=== PATIENT | female | born 1995 | race Caucasian/White ===

== ENCOUNTER 2018-03-02 09:50 | Inpatient (IN) | payer BC ==
[2018-03-02] MEDS ORDERED: Misoprostol 50 MCG (1/2 of 100 MCG) Tab VAG ONE (10:41)
[2018-03-02] MEDS ORDERED: Sodium Chloride 0.9% 10 ML Syringe FLUSH PRN (10:47)
[2018-03-02] MEDS ORDERED: Carboprost Tromethamine 250 MCG/1 ML Amp IM PRN (10:47)
[2018-03-02] MEDS ORDERED: Methylergonovine 0.2 MG/1 ML Amp IM PRN (10:47)
[2018-03-02] MEDS ORDERED: Acetaminophen 325 MG Tab PO PRN (10:47)
[2018-03-02] MEDS ORDERED: Lidocaine 1% 30 ML SDV INJECT PRN (10:47)
[2018-03-02] MEDS ORDERED: Misoprostol 400 MCG (4 X 100 MCG TAB) RECTAL PRN (10:47)
[2018-03-02] MEDS ORDERED: Tranexamic Acid 1,000 MG in Sodium Chloride 0.9% 100 ML IV PRN (10:47)
[2018-03-02] MEDS ORDERED: Lactated Ringers 500 ML IV ONE (10:47)
[2018-03-02] MEDS ORDERED: Ondansetron 4 MG/2 ML SDV IV PRN (10:47)
[2018-03-02] MEDS ORDERED: Lactated Ringers 1,000 ML IV SCH (11:00)
[2018-03-02] MEDS ORDERED: Misoprostol 50 MCG (1/2 of 100 MCG) Tab VAG PRN (15:00)
[2018-03-02] MEDS ORDERED: Misoprostol 25 MCG (1/4 of 100 MCG) Tab VAG PRN (16:12)
--- NOTE | 2018-03-02 17:16 | HP ---
CHIEF COMPLAINT: Preeclampsia in 3rd trimester. HISTORY OF PRESENT ILLNESS: This patient is a 23-year-old, 1, para 0, female with a Last menstrual period 06/08/2017 EDC- 03/15/2018, EGA- 38 1/7 weeks gestation who presents to Labor and Delivery because of preeclampsia without severe features. The patient's blood pressures were in the 140's to 150's over 90's. and have not improved from her appointment on 2017. Her protein creatine ratio was 0.6 on 02/28/18, today it is 0.75. At that appointment, discussed of induction of labor today 03/02/2018. The patient and her were in agreement with plan and were prepared for admission to the hospital for today. The patient has had occasional [place] contractions in the past week. No spotting or bleeding. No headaches. No shortness of breath. No cough. No leakage of fluid or vaginal bleeding. movement has been good overall. Nonstress test this morning is reactive. HISTORY: Last menstrual period of 06/08/2017, for an estimated delivery date of 03/15/2018. She is blood type B positive, group B strep negative, and rubella immune. The patient was seen in [facility] by Dr. Emely Musa for 1st and 2nd trimester care. Resumed care by Dr. Connelly at 29 weeks gestation. No gestational diabetes. Patient began to have elevated blood pressures on 02/28/2018. Blood pressure on arrival at that visit was 150/100 with a recheck of 151/84. The patient was placed on modified bedrest that day. Blood pressures had not improved on appointment 03/02/2018. The patient was treated for bacterial vaginosis with 7-day course of metronidazole 12/06/2017. Tdap given 01/03/2018. Flu shot given 01/03/2018. The patient has personal history of chickenpox. PAST MEDICAL HISTORY: 1. Chickenpox as a child. 2. Mild carpal tunnel syndrome, bilateral. 3. Preeclampsia. PAST SURGICAL HISTORY: [place]o tooth extraction. FAMILY HISTORY: Mother with hypertension. No family history of twins. Negative for defects, clotting disorders, anesthesia problems, seizures, cystic fibrosis, or bleeding problems. SOCIAL HISTORY: The patient is to , Abdon. They live in [place], [place]. This is their first child together. 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 David is a licensed clinical social worker. Both are nonsmokers. No alcohol or illicit drug use. CURRENT MEDICATIONS: 1. vitamins. 2. Folic acid. EXPOSURE MEDICATIONS: Metronidazole for Bacterial vaginosis. ALLERGIES: No known allergies. REVIEW OF SYSTEMS: No headache, blurry vision, chest pain, shortness of breath. No fever. No chills. No nausea or vomiting. No diarrhea or constipation. The patient has some mild nonpitting swelling bilaterally in the feet. Hands appear slightly swollen. No skin rash. Cl Gao, no contractions. OBJECTIVE: Vital Signs: Height 5 feet 8 inches, weight is 248 pounds, blood pressure 143/76, pulse 80, temperature of 98 degrees Fahrenheit. HEENT: Atraumatic, normocephalic. Tympanic membranes good light reflex, pearly cortez. Bony landmarks visible. Pupils PERRLA. Mouth, uvula elevates midline. Mucous membranes are moist. Good dentition. Airways patent. Neck: Supple. Trachea midline. There are some hypertrophic scars on her neck and on her chest. Heart: Regular rate and rhythm without murmur. Lungs: Clear to auscultation bilaterally. No crackles, rhonchi, or wheeze, Abdomen: Gravid and nontender. Baseline heart rate 130s per minute. Accelerations noted. No contractions on tocometer. Cervix is 1.5 cm dilated, 70%/-2 Vertex presentation. and bag of water was intact. Extremities: 1 + edema. No erythema or tenderness. DTR's 2+/ 4 No clonus. ADMISSION LABORATORY DATA: Hemoglobin of 11.9, platelets of 205. Urinalysis, urine protein of greater than 300, negative glucose, negative ketones. Urine protein creatinine ratio 0.75. Urine color is dark yellow. ASSESSMENT: 1. A 38 and 1/7 weeks intrauterine based on last menstrual period. 2. 1, para 0. 3. Blood type B positive, rubella immune, group B strep negative. 4. Preeclampsia without severe features.. Elevated urine protein with a Protein creatinine of ratio 0.75. PLAN: The patient admitted for induction of labor. The patient encouraged to drink water so that we can place an IV. We will be inducing her labor with 50 mcg of Cytotec placed vaginally. Further 25mcg Cytotec placement and Pitocin augmentation will be considered as her labor progresses. We are anticipating a spontaneous vaginal delivery. The patient is planning to have IV pain/ Intrathecal medications at this time. The patient understands that complications may arise necessitating a section. The patient and her 's questions have been answered. Patient was seen and examined by Dr. Andres Crum We discussed her case and will continue this plan. [facility] /[id number] MTDD
[2018-03-03] MEDS ORDERED: Sodium Chloride 0.9% 10 ML Syringe FLUSH PRN (01:19)
[2018-03-03] MEDS ORDERED: Benzocaine/Menthol 20%-0.5% Spray 56 GM Canister TOP PRN (01:19)
[2018-03-03] MEDS ORDERED: Carboprost Tromethamine 250 MCG/1 ML Amp IM PRN (01:19)
[2018-03-03] MEDS ORDERED: Zolpidem 5 MG Tab PO PRN (01:19)
[2018-03-03] MEDS ORDERED: Simethicone 80 MG Tab.Chew PO PRN (01:19)
[2018-03-03] MEDS ORDERED: Tranexamic Acid 1,000 MG in Sodium Chloride 0.9% 100 ML IV PRN (01:19)
[2018-03-03] MEDS ORDERED: Misoprostol 400 MCG (4 X 100 MCG TAB) RECTAL PRN (01:19)
[2018-03-03] MEDS ORDERED: Acetaminophen 325 MG Tab PO PRN (01:19)
[2018-03-03] MEDS ORDERED: Oxytocin/Normal Saline 30 UNIT/500 ML BAG IV SCH (01:30)
--- NOTE | 2018-03-03 01:32 | PCM.DEL ---
L & D Note - General Info Date of Service: 03/03/18 (38 2/7 week Intrauterine ) Mother's Due Date: 03/15/18 - Delivery Note Labor: Spontaneous Cervical Ripening Method: Other (see below) (Vaginal Misoprostol 50 micrograms X 1 then 25 microgram X 2.) Delivery Outcome: Livebirth Infant Delivery Method: Spontaneous Vaginal Delivery-Single Delivery Mode: Spontaneous Presentation: Vertex Nuchal Cord: None Anesthesia Type: Local Anesthetic: Lidocaine (Xylocaine) 1% Plain Local Anesthetic Volume: Other (20 mL) Amniotic Fluid Description: Clear Episiotomy Type: None Laceration: 2nd Degree, Perineal Suture type: Vicryl, Chromic Suture size: 3-0 Placenta: Intact, Spontaneous, Expressed Cord: 3 Vessels Estimated Blood Loss: 450 Resuscitation Needed: No [place]: Suctioned, Bulb Syringe, Stimulated, Warmed, [place] Used, Warmer Used Provider: Andres Crum Score 1 min: 9 Score 5 min: 9 Second Stage Interventions: Reports: Second Nurse Assessed Progress of Descent, Second Nurse Reviewed Contraction Pattern, Pushing Involuntarily Delivery Comments (Free Text/Narrative):: , OA Viable female infant over intact perineum Cord 3 vessel not around neck Placenta delivered by simple expression intact Mother and infant in good condition Labia, Vagina and Cervix inspected and intact 2nd degree midline perineal laceration noted repaired with 2-0 Vicryl and 3-0 chromic suture. Weight 5lbs 12oz length- 18 3/4 inches long. 's 9 and 9. - Patient Data Vitals - Most Recent: Last Vital Signs Temp 99.3 F 03/02/18 19:13 Pulse 76 03/02/18 20:12 Resp 18 03/02/18 20:12 BP 154/80 H 03/02/18 20:12 Pulse Ox Weight - Most Recent: 248 lb I&O - Last 24 Hours: Intake & Output 03/02/18 03/02/18 03/03/18 14:59 22:59 06:59 Intake Total 500 Balance 500 Lab Results Last 24 Hours: Laboratory Results - last 24 hr 03/02/18 03/02/18 03/02/18 Range/Units 10:20 10:20 10:31 WBC 12.3 H (5.0-10.0) 10^3/uL RBC 3.86 L (4.2-5.4) 10^6/uL Hgb 11.9 L (12.0-16.0) g/dL Hct 34.7 L (37.0-47.0) % MCV 89.9 (80-100) fL MCH 30.8 (27.0-34.0) pg MCHC 34.3 (33.0-35.0) g/dL Plt Count 205 (150-450) 10^3/uL BUN (7-18) mg/dL Creatinine (0.6-1.3) mg/dL Est Cr Clr Drug Dosing Estimated GFR (MDRD) Uric Acid (2.6-7.2) mg/dL AST (10-42) IU/L Alkaline Phosphatase (42-121) IU/L Lactate Dehydrogenase (91-180) IU/L Urine Color Dark yellow (YELLOW) Urine Appearance Cloudy (CLEAR) Urine pH 6.0 (5.0-9.0) Ur Specific [place] 1.020 (1.005-1.030) Urine Protein >=300 H (NEGATIVE) Urine Glucose (UA) Negative (NEGATIVE) Urine Ketones Negative (NEGATIVE) Urine Occult Blood Trace-intact H (NEGATIVE) Urine Nitrite Negative (NEGATIVE) Urine Bilirubin Negative (NEGATIVE) Urine Urobilinogen 0.2 (0.2-1.0) mg/dL Ur Leukocyte Esterase Trace H (NEGATIVE) Ur Random Creatinine 192 mg/dL U Random Total Protein 144 H (0.00-9.9) mg/dL Protein/Creatinin Ratio 0.75 //18 Range/Units 10:31 WBC (5.0-10.0) 10^3/uL RBC (4.2-5.4) 10^6/uL Hgb (12.0-16.0) g/dL Hct (37.0-47.0) % MCV (80-100) fL MCH (27.0-34.0) pg MCHC (33.0-35.0) g/dL Plt Count (150-450) 10^3/uL BUN 15 (7-18) mg/dL Creatinine 0.7 (0.6-1.3) mg/dL Est Cr Clr Drug Dosing TNP Estimated GFR (MDRD) > 60 Uric Acid 6.3 (2.6-7.2) mg/dL AST 27 (10-42) IU/L Alkaline Phosphatase 146 H (42-121) IU/L Lactate Dehydrogenase 159 (91-180) IU/L Urine Color (YELLOW) Urine Appearance (CLEAR) Urine pH (5.0-9.0) Ur Specific [place] (1.005-1.030) Urine Protein (NEGATIVE) Urine Glucose (UA) (NEGATIVE) Urine Ketones (NEGATIVE) Urine Occult Blood (NEGATIVE) Urine Nitrite (NEGATIVE) Urine Bilirubin (NEGATIVE) Urine Urobilinogen (0.2-1.0) mg/dL Ur Leukocyte Esterase (NEGATIVE) Ur Random Creatinine mg/dL U Random Total Protein (0.00-9.9) mg/dL Protein/Creatinin Ratio Med Orders - Current: Current Medications Acetaminophen (Tylenol) 650 mg PO Q4H PRN PRN Reason: Pain (Mild 1-3) and fever Last Admin: 03/02/18 21:58 Dose: 650 mg Acetaminophen (Tylenol) 650 mg PO Q6H PRN PRN Reason: mild pain or fever Benzocaine/Menthol (Dermoplast Pain Relief [place]) 0 gm TOP Q4H PRN PRN Reason: Perineal comfort measures Carboprost Tromethamine (Hemabate Ds) 250 mcg IM ASDIRECTED PRN PRN Reason: HEMORRHAGE Carboprost Tromethamine (Hemabate Ds) 250 mcg IM ASDIRECTED PRN PRN Reason: Excessive vaginal bleeding Docusate Sodium (Colace) 100 mg PO BID PRN PRN Reason: Constipation Ferrous Sulfate (Ferrous Sulfate) 325 mg PO WITHBREAKFAST MEHDI Lactated Ringer's (Ringers, Lactated) 1,000 mls @ 125 mls/hr IV ASDIRECTED MEHDI Last Admin: 03/02/18 19:30 Dose: 125 mls/hr Tranexamic Acid 1,000 mg/ (Sodium Chloride) 110 mls @ 660 mls/hr IV ONETIME PRN PRN Reason: Bleeding Oxytocin/Sodium Chloride (Pitocin In Ns 30 Unit/500 Ml) 30 unit in 500 mls @ 2 mls/hr IV TITRATE MEHDI; Protocol Tranexamic Acid 1,000 mg/ (Sodium Chloride) 110 mls @ 660 mls/hr IV ONETIME PRN PRN Reason: Bleeding Ibuprofen (Motrin) 800 mg PO Q8H PRN PRN Reason: Mild Pain or Fever Lidocaine HCl (Xylocaine-Mpf 1%) 10 ml INJECT ASDIRECTED PRN PRN Reason: Perineal Repair Methylergonovine Maleate (Methergine) 0.2 mg IM ASDIRECTED PRN PRN Reason: Hemorrhage Misoprostol (Cytotec) 800 mcg RECTAL ASDIRECTED PRN PRN Reason: Hemorrhage Misoprostol (Cytotec) 25 mcg VAG Q4H PRN PRN Reason: CERVICAL RIPENING Last Admin: 03/02/18 16:05 Dose: 25 mcg Misoprostol (Cytotec) 800 mcg RECTAL ONETIME PRN PRN Reason: Hemorrhage Non-Formulary Medication (Pnv With Ca,No.72/Iron/Fa [ Plus Tablet]) 1 dose PO DAILY MEHDI Ondansetron HCl (Zofran) 4 mg IV Q4H PRN PRN Reason: Nausea/Vomiting Simethicone (Simethicone) 80 mg PO Q4H PRN PRN Reason: Gas Sodium Chloride (Saline Flush) 10 ml FLUSH ASDIRECTED PRN PRN Reason: Keep Vein Open Sodium Chloride (Saline Flush) 10 ml FLUSH ASDIRECTED PRN PRN Reason: Keep Vein Open Zolpidem Tartrate (Ambien) 5 mg PO BEDTIME PRN PRN Reason: Insomnia Discontinued Medications Lactated Ringer's (Ringers, Lactated) 500 mls @ 999 mls/min IV .BOLUS ONE Stop: 03/02/18 10:48 Misoprostol (Cytotec) 50 mcg VAG ONETIME ONE Stop: 03/02/18 10:42 Last Admin: 03/02/18 11:19 Dose: 50 mcg - Problem List Review Problem List Initiated/Reviewed/Updated: Yes - My Orders Last 24 Hours: My Active Orders 03/03/18 01:19 Up ad She [RC] ASDIRECTED Acetaminophen [Tylenol] 650 mg PO Q6H PRN Benzocaine/Menthol [Dermoplast Pain Relief [place]] See Dose Instructions TOP Q4H PRN Carboprost Tromethamine [Hemabate DS] 250 mcg IM ASDIRECTED PRN Docusate Sodium [Colace] 100 mg PO BID PRN Ibuprofen [Motrin] 800 mg PO Q8H PRN Misoprostol [Cytotec] 800 mcg RECTAL ONETIME PRN Simethicone 80 mg PO Q4H PRN Sodium Chloride 0.9% [Saline Flush] 10 ml FLUSH ASDIRECTED PRN Tranexamic Acid [Cyklokapron] 1,000 mg Sodium Chloride 0.9% [Normal Saline] 100 ml IV ONETIME Zolpidem [Ambien] 5 mg PO BEDTIME PRN Assess Lochia [WOMSER] Per Unit Routine Assess Uterine Involution [WOMSER] Per Unit Routine Breast Pump [WOMSER] Per Unit Routine Ice Therapy [OM.PC] Per Unit Routine Perineal Care [OM.PC] Per Unit Routine Peripheral IV Discontinue [OM.PC] Routine Saline Lock Insert [OM.PC] Urgent Sitz Bath [OM.PC] Per Unit Routine 03/03/18 01:30 Oxytocin 30 Units in NS @ 2 MUNITS/MIN(500ml) Oxytocin/Normal Saline [Pitocin in NS 30 UNIT/500 ML] 30 unit in 500 ml IV TITRATE 03/03/18 08:00 Ferrous Sulfate 325 mg PO WITHBREAKFAST 03/03/18 09:00 Pnv with Ca,No.72/Iron/Fa [ Plus Tablet] 1 dose PO DAILY 03/03/18 Breakfast Regular Diet [DIET] 03/04/18 06:00 CBC W/O DIFF,HEMOGRAM [HEME] Routine
[2018-03-03] MEDS: Ibuprofen 800 MG Tab PO PRN ×3 (02:30→22:39)
--- NOTE | 2018-03-03 02:53 | PCM.SN ---
- Free Text/Narrative Note: 03/02/18 16:00 Patient resting in bed on her left side at time of interview. She is not feeling contractions, has occasional mild cramping pain in lower abdomen. Last Cytotec placement 1125. Tocometer shows Category 1 tracing, strip is reactive and reassuring. FHR baseline 140. Mother's vitals 148/70, pulse 73, Temp 98.1F 25 mcg Cytotec placed vaginally. Patient did not tolerate vaginal placement, withdrawing up the bed at touch to labia minora. Cytotec was slowly advanced into vaginal canal with minimal relaxation of patient. Cervix was not located during exam due to patient's tolerance of procedure, cervical dilation not assessed. Joan Grant [facility]
[2018-03-03] MEDS: Ferrous Sulfate 325 MG Tab PO SCH (12:22)
[2018-03-03] MEDS: Docusate Sodium 100 MG Cap PO PRN (12:23)
[2018-03-03] MEDS: Prenatal Multivitamin with Calcium/Folic Acid/Iron Tab PO SCH (12:23)
--- NOTE | 2018-03-03 13:48 | PCM.PNPP ---
- General Info Date of Service: 03/03/18 (PPD # 0 S/P ) Functional Status: Reports: Pain Controlled, Tolerating Diet, Ambulating, Urinating - Review of Systems General: Reports: No Symptoms HEENT: Reports: No Symptoms Pulmonary: Reports: No Symptoms Cardiovascular: Reports: No Symptoms Gastrointestinal: Reports: No Symptoms Genitourinary: Reports: No Symptoms Musculoskeletal: Reports: No Symptoms Skin: Reports: No Symptoms Neurological: Reports: No Symptoms Psychiatric: Reports: No Symptoms - Patient Data Vital Signs - Most Recent: Last Vital Signs Temp 98.7 F 03/03/18 08:00 Pulse 100 03/03/18 08:10 Resp 18 03/03/18 08:05 BP 144/77 H 03/03/18 08:10 Pulse Ox 98 03/03/18 08:05 Weight - Most Recent: 248 lb I&O - Last 24 Hours: Intake & Output 03/02/18 03/03/18 03/03/18 22:59 06:59 14:59 Intake Total 500 2000 Output Total 900 Balance 500 1100 Med Orders - Current: Current Medications Acetaminophen (Tylenol) 650 mg PO Q4H PRN PRN Reason: Pain (Mild 1-3) and fever Last Admin: 03/02/18 21:58 Dose: 650 mg Acetaminophen (Tylenol) 650 mg PO Q6H PRN PRN Reason: mild pain or fever Benzocaine/Menthol (Dermoplast Pain Relief [place]) 0 gm TOP Q4H PRN PRN Reason: Perineal comfort measures Last Admin: 03/03/18 02:29 Dose: 1 spray Carboprost Tromethamine (Hemabate Ds) 250 mcg IM ASDIRECTED PRN PRN Reason: HEMORRHAGE Carboprost Tromethamine (Hemabate Ds) 250 mcg IM ASDIRECTED PRN PRN Reason: Excessive vaginal bleeding Docusate Sodium (Colace) 100 mg PO BID PRN PRN Reason: Constipation Last Admin: 03/03/18 12:23 Dose: 100 mg Ferrous Sulfate (Ferrous Sulfate) 325 mg PO WITHBREAKFAST MEHDI Last Admin: 03/03/18 12:22 Dose: 325 mg Lactated Ringer's (Ringers, Lactated) 1,000 mls @ 125 mls/hr IV ASDIRECTED MEHDI Last Admin: 03/02/18 19:30 Dose: 125 mls/hr Tranexamic Acid 1,000 mg/ (Sodium Chloride) 110 mls @ 660 mls/hr IV ONETIME PRN PRN Reason: Bleeding Oxytocin/Sodium Chloride (Pitocin In Ns 30 Unit/500 Ml) 30 unit in 500 mls @ 2 mls/hr IV TITRATE MEHDI; Protocol Last Titration: 03/03/18 00:38 Dose: 125 mls/hr Tranexamic Acid 1,000 mg/ (Sodium Chloride) 110 mls @ 660 mls/hr IV ONETIME PRN PRN Reason: Bleeding Ibuprofen (Motrin) 800 mg PO Q8H PRN PRN Reason: Mild Pain or Fever Last Admin: 03/03/18 12:23 Dose: 800 mg Lidocaine HCl (Xylocaine-Mpf 1%) 10 ml INJECT ASDIRECTED PRN PRN Reason: Perineal Repair Last Admin: 03/03/18 01:38 Dose: 30 ml Methylergonovine Maleate (Methergine) 0.2 mg IM ASDIRECTED PRN PRN Reason: Hemorrhage Misoprostol (Cytotec) 800 mcg RECTAL ASDIRECTED PRN PRN Reason: Hemorrhage Misoprostol (Cytotec) 25 mcg VAG Q4H PRN PRN Reason: CERVICAL RIPENING Last Admin: 03/02/18 16:05 Dose: 25 mcg Misoprostol (Cytotec) 800 mcg RECTAL ONETIME PRN PRN Reason: Hemorrhage Ondansetron HCl (Zofran) 4 mg IV Q4H PRN PRN Reason: Nausea/Vomiting Prenat Multivit/[place]/Iron/Folic Ac ( Plus Iron) 1 each PO DAILY MEHDI Last Admin: 03/03/18 12:23 Dose: 1 each Simethicone (Simethicone) 80 mg PO Q4H PRN PRN Reason: Gas Sodium Chloride (Saline Flush) 10 ml FLUSH ASDIRECTED PRN PRN Reason: Keep Vein Open Sodium Chloride (Saline Flush) 10 ml FLUSH ASDIRECTED PRN PRN Reason: Keep Vein Open Zolpidem Tartrate (Ambien) 5 mg PO BEDTIME PRN PRN Reason: Insomnia Discontinued Medications Lactated Ringer's (Ringers, Lactated) 500 mls @ 999 mls/min IV .BOLUS ONE Stop: 03/02/18 10:48 Last Admin: 03/02/18 23:30 Dose: 999 mls/min Misoprostol (Cytotec) 50 mcg VAG ONETIME ONE Stop: 03/02/18 10:42 Last Admin: 03/02/18 11:19 Dose: 50 mcg - Infant Interaction Disposition, : at Bedside Interaction: Unable to Hold at this Time Feeding: Attempted ; Nursed Fair/Poor, Encouraged to Breastfeed Support Person: - Recovery Exam Fundal Tone: Firm Fundal Level: At Umbilicus Fundal Placement: Midline Lochia Amount: Moderate Lochia Color: Rubra/Red Perineum Description: Intact, Minimal Bruising/Swelling Episiotomy/Laceration: Approximated Bladder Status: Voiding Urinary Elimination: Incontinent - Exam General: Alert, Oriented, Cooperative, No Acute Distress HEENT: Pupils Equal, Pupils Reactive, Mucous Membr. Moist/[place] Neck: Supple Lungs: Clear to Auscultation, Normal Respiratory Effort Cardiovascular: Regular Rate, Regular Rhythm GI/Abdominal Exam: Normal Bowel Sounds, Soft, Non-Tender, No Organomegaly, No Distention Extremities: Normal Inspection, Normal Range of Motion, Non-Tender Skin: Warm, Dry, Intact Neurological: No New Focal Deficit Psy/Mental Status: Alert, Normal Affect, Normal Mood - Problem List Review Problem List Initiated/Reviewed/Updated: Yes - My Orders Last 24 Hours: My Active Orders 03/03/18 01:19 Up ad She [RC] ASDIRECTED Acetaminophen [Tylenol] 650 mg PO Q6H PRN Benzocaine/Menthol [Dermoplast Pain Relief [place]] See Dose Instructions TOP Q4H PRN Carboprost Tromethamine [Hemabate DS] 250 mcg IM ASDIRECTED PRN Docusate Sodium [Colace] 100 mg PO BID PRN Ibuprofen [Motrin] 800 mg PO Q8H PRN Misoprostol [Cytotec] 800 mcg RECTAL ONETIME PRN Simethicone 80 mg PO Q4H PRN Sodium Chloride 0.9% [Saline Flush] 10 ml FLUSH ASDIRECTED PRN Tranexamic Acid [Cyklokapron] 1,000 mg Sodium Chloride 0.9% [Normal Saline] 100 ml IV ONETIME Zolpidem [Ambien] 5 mg PO BEDTIME PRN Assess Lochia [WOMSER] Per Unit Routine Assess Uterine Involution [WOMSER] Per Unit Routine Breast Pump [WOMSER] Per Unit Routine Ice Therapy [OM.PC] Per Unit Routine Perineal Care [OM.PC] Per Unit Routine Peripheral IV Discontinue [OM.PC] Routine Saline Lock Insert [OM.PC] Urgent Sitz Bath [OM.PC] Per Unit Routine 03/03/18 01:30 Oxytocin/Normal Saline [Pitocin in NS 30 UNIT/500 ML] 30 unit in 500 ml IV TITRATE 03/03/18 08:00 Ferrous Sulfate 325 mg PO WITHBREAKFAST 03/03/18 09:00 Vit with Ca/FA/Iron [ Plus Iron] 1 each PO DAILY 03/03/18 Breakfast Regular Diet [DIET] 03/04/18 06:00 CBC W/O DIFF,HEMOGRAM [HEME] Routine - Assessment Assessment:: PPD # 0 S/P Doing well. History of Preeclampsia without severe features. - Plan Plan:: Continue present care being transferred to [facility] in [place] Will discharge home tomorrow if BP stay's stable
[2018-03-04] MEDS: Docusate Sodium 100 MG Cap PO PRN (09:12)
[2018-03-04] MEDS: Ferrous Sulfate 325 MG Tab PO SCH (09:12)
[2018-03-04] MEDS: Ibuprofen 800 MG Tab PO PRN (09:12)
[2018-03-04] MEDS: Prenatal Multivitamin with Calcium/Folic Acid/Iron Tab PO SCH (10:25)
--- NOTE | 2018-03-04 10:40 | PCM.PNPP ---
- General Info Date of Service: 03/04/18 (PPD # 1 S/P ) Admission Dx/Problem (Free Text): History of preeclampsia without severe features Had ysesterday and her BP is doing well No headache, blurred vision, epigastric pain or scotomata. Tolerating her diet. Ambulating well. Functional Status: Reports: Pain Controlled, Tolerating Diet, Ambulating, Urinating - Review of Systems General: Reports: No Symptoms HEENT: Reports: No Symptoms Pulmonary: Reports: No Symptoms Cardiovascular: Reports: No Symptoms Gastrointestinal: Reports: No Symptoms Genitourinary: Reports: No Symptoms Musculoskeletal: Reports: No Symptoms Skin: Reports: No Symptoms Neurological: Reports: No Symptoms Psychiatric: Reports: No Symptoms - General Info Date of Service: 03/04/18 (PPD # 1 S/P ) - Patient Data Vital Signs - Most Recent: Last Vital Signs Temp 98.4 F 03/04/18 08:00 Pulse 94 03/04/18 08:00 Resp 18 03/04/18 08:00 BP 135/63 03/04/18 08:00 Pulse Ox 97 03/04/18 00:00 Weight - Most Recent: 248 lb Lab Results - Last 24 Hours: Laboratory Results - last 24 hr 03/04/18 Range/Units 06:15 WBC 14.0 H (5.0-10.0) 10^3/uL RBC 3.07 L (4.2-5.4) 10^6/uL Hgb 9.3 L D (12.0-16.0) g/dL Hct 28.3 L (37.0-47.0) % MCV 92.2 (80-100) fL MCH 30.3 (27.0-34.0) pg MCHC 32.9 L (33.0-35.0) g/dL Plt Count 159 (150-450) 10^3/uL Med Orders - Current: Current Medications Acetaminophen (Tylenol) 650 mg PO Q4H PRN PRN Reason: Pain (Mild 1-3) and fever Last Admin: 03/02/18 21:58 Dose: 650 mg Acetaminophen (Tylenol) 650 mg PO Q6H PRN PRN Reason: mild pain or fever Benzocaine/Menthol (Dermoplast Pain Relief [place]) 0 gm TOP Q4H PRN PRN Reason: Perineal comfort measures Last Admin: 03/03/18 02:29 Dose: 1 spray Carboprost Tromethamine (Hemabate Ds) 250 mcg IM ASDIRECTED PRN PRN Reason: HEMORRHAGE Carboprost Tromethamine (Hemabate Ds) 250 mcg IM ASDIRECTED PRN PRN Reason: Excessive vaginal bleeding Docusate Sodium (Colace) 100 mg PO BID PRN PRN Reason: Constipation Last Admin: 03/04/18 09:12 Dose: 100 mg Ferrous Sulfate (Ferrous Sulfate) 325 mg PO WITHBREAKFAST [facility] Last Admin: 03/04/18 09:12 Dose: 325 mg Lactated Ringer's (Ringers, Lactated) 1,000 mls @ 125 mls/hr IV ASDIRECTED MEHDI Last Admin: 03/02/18 19:30 Dose: 125 mls/hr Tranexamic Acid 1,000 mg/ (Sodium Chloride) 110 mls @ 660 mls/hr IV ONETIME PRN PRN Reason: Bleeding Oxytocin/Sodium Chloride (Pitocin In Ns 30 Unit/500 Ml) 30 unit in 500 mls @ 2 mls/hr IV TITRATE [facility]; Protocol Last Titration: 03/03/18 00:38 Dose: 125 mls/hr Tranexamic Acid 1,000 mg/ (Sodium Chloride) 110 mls @ 660 mls/hr IV ONETIME PRN PRN Reason: Bleeding Ibuprofen (Motrin) 800 mg PO Q8H PRN PRN Reason: Mild Pain or Fever Last Admin: 03/04/18 09:12 Dose: 800 mg Lidocaine HCl (Xylocaine-Mpf 1%) 10 ml INJECT ASDIRECTED PRN PRN Reason: Perineal Repair Last Admin: 03/03/18 01:38 Dose: 30 ml Methylergonovine Maleate (Methergine) 0.2 mg IM ASDIRECTED PRN PRN Reason: Hemorrhage Misoprostol (Cytotec) 800 mcg RECTAL ASDIRECTED PRN PRN Reason: Hemorrhage Misoprostol (Cytotec) 25 mcg VAG Q4H PRN PRN Reason: CERVICAL RIPENING Last Admin: 03/02/18 16:05 Dose: 25 mcg Misoprostol (Cytotec) 800 mcg RECTAL ONETIME PRN PRN Reason: Hemorrhage Ondansetron HCl (Zofran) 4 mg IV Q4H PRN PRN Reason: Nausea/Vomiting Prenat Multivit/Family Service Worker/Iron/Folic Ac ( Plus Iron) 1 each PO DAILY MEHDI Last Admin: 03/04/18 10:25 Dose: Not Given Simethicone (Simethicone) 80 mg PO Q4H PRN PRN Reason: Gas Sodium Chloride (Saline Flush) 10 ml FLUSH ASDIRECTED PRN PRN Reason: Keep Vein Open Sodium Chloride (Saline Flush) 10 ml FLUSH ASDIRECTED PRN PRN Reason: Keep Vein Open Zolpidem Tartrate (Ambien) 5 mg PO BEDTIME PRN PRN Reason: Insomnia Discontinued Medications Lactated Ringer's (Ringers, Lactated) 500 mls @ 999 mls/min IV .BOLUS ONE Stop: 03/02/18 10:48 Last Admin: 03/02/18 23:30 Dose: 999 mls/min Misoprostol (Cytotec) 50 mcg VAG ONETIME ONE Stop: 03/02/18 10:42 Last Admin: 03/02/18 11:19 Dose: 50 mcg - Infant Interaction Disposition, : [place] at Bedside Interaction: Unable to Hold at this Time Infant Feeding: Attempted ; Nursed Fair/Poor, Encouraged to Breastfeed Support Person: - Recovery Exam Fundal Tone: Firm Fundal Level: 2 Fingerbreadths Below Umbilicus Fundal Placement: Midline Lochia Amount: Scant Lochia Color: Brownish Perineum Description: Intact, Minimal Bruising/Swelling Episiotomy/Laceration: Approximated Bladder Status: Voiding Urinary Elimination: Voided - Exam General: Alert, Oriented, Cooperative, No Acute Distress HEENT: Pupils Equal, Pupils Reactive, EOMI, Mucous Membr. Moist/[place] Neck: Supple Lungs: Clear to Auscultation, Normal Respiratory Effort Cardiovascular: Regular Rate, Regular Rhythm, No Murmurs GI/Abdominal Exam: Normal Bowel Sounds, Soft, Non-Tender, No Organomegaly, No Distention Extremities: Normal Inspection, Normal Range of Motion, Non-Tender, Pedal Edema Skin: Warm, Dry, Intact Neurological: No New Focal Deficit Psy/Mental Status: Alert, Normal Affect, Normal Mood - Problem List Review Problem List Initiated/Reviewed/Updated: Yes - Assessment Assessment:: PPD #1 S/P Doing well. History of Preeclampsia without severe features. BP stable - Plan Plan:: 1. Will discharge to home. 2. Follow-up with Dr. Connelly on 03/07/2018 for BP check. 3.Come in sooner with any symptoms like headache, blurred vision, epigastric pain or scotomata. Ibuprofen/ylenol for pain.
--- NOTE | 2018-03-04 16:41 | DISCH ---
ADMISSION DIAGNOSES: 1. A 38 and 2/7 weeks' gestation, based on the last menstrual period. 2. 1, para 0. 3. Preeclampsia without severe features. Urine protein >300. Protein-creatinine ratio of 0.75. 4. Blood type B positive. Rubella immune. Group B streptococcus negative. DISCHARGE DIAGNOSES: 1. A 38 and 2/7 weeks' gestation, based on the last menstrual period. 2. 1, para 1-0-0-1. 2. Blood type B positive. Rubella immune. Group B streptococcus negative. 3. Normal spontaneous vaginal delivery of female weight 5 lbs 11 oz Length 18 3/4 inches long, 's 9, and 9. BRIEF HISTORY: A now 23-year-old 1 para 0 female presented to the hospital for induction of labor due to preeclampsia without severe features. She was sent directly from clinic appointment with unimproved hypertension and proteinuria after three days of bedrest. The patient admitted with blood pressure of 143/76, protein-creatinine ratio of 0.75. She is not having headaches, abdominal pain, or changes in vision. HOSPITAL COURSE: The patient's labor was induced with three doses of Cytotec with no Pitocin augmentation. The patient quickly progressed from 1 cm dilated to completely dilated with only acetaminophen for pain control. She had a normal spontaneous vaginal delivery of female , APGARs 9 and 9, without complications. The patient required a second-degree laceration repair. After delivery, uterus became firm with Pitocin, no hemorrhage or clots. Since delivery the patient has been ambulating, tolerating a regular diet, and is urinating without complication. She has not had a bowel movement, but is having flatulence and is taking Colace. She is having occasional contractions, none that she describes these more severe than menstrual cramps. Her lochia is decreasing in amount. She describes the amount "about as much as a regular period". The patient was able to breast pump colostrum for her infant who has been transferred to NICU for apneic and floppy tone episodes. She has not used the breast pump since 10:00 p.m. yesterday due to breast tenderness. She is very eager to be discharged today to go to [facility]. Patient's has been providing updates to nursing staff that the is doing well at NICU in [place]. DISCHARGE CONDITION: Good. PHYSICAL EXAMINATION: Vital Signs: Temperature of 98.4 Fahrenheit, pulse of 94, blood pressure 135/63 , respirations 18, and SpO2 99% on room air. Heart: Regular without murmur. Lungs: Clear to auscultation bilaterally. Abdomen: Soft and nontender. Fundus is firm below the umbilicus. Extremities: Swelling present in hands and ankles. No erythema or joint tenderness. LABORATORY DATA: Admission hemoglobin of 11.9, hemoglobin today of 9.3, admission platelets 205, and platelets today 159. DISPOSITION: Home with family. Will be traveling to [place] shortly after discharge. MEDICATIONS: 1. Ibuprofen 600 mg every 6 hours as needed for pain. 2. Tylenol 650 mg every 6 hours as needed for pain. 3. Iron 325 mg twice daily. 4. Colace 100 mg twice daily as needed for constipation. INSTRUCTIONS: The patient is to follow up with Dr. Connelly on 03/07/2018. Her appointment is for baby's weight check, possibly NICU discharge exam. The patient needs to make a 6-week appointment with Dr. Connelly. The patient should not lift anything over 25 pounds (nothing heavier than the baby in the carrier) and needs to be on pelvic rest for additional 6 weeks. Routine vaginal delivery instructions were provided. The patient and her 's questions were answered. [facility] /[id number] [place]
== END 2018-03-04 12:10 | disposition home or self-care (01) | DRG 560 ==
LOC: DL.OBCHECK 09:50 → DL.OB 11:19 → OBSVTOIN 03-03 00:21
PROVIDERS: ADMIT Obstetrics & Gynecology; ATTEND Obstetrics & Gynecology
PROC: 10E0XZZ Delivery of Products of Conception, External Approach (ICD-10-PCS; principal; 2018-03-03)
PROC: 3E0P7VZ Introduction of Hormone into Female Reproductive, Via Natural or Artificial Opening (ICD-10-PCS; 2018-03-03)
PROC: 0KQM0ZZ Repair Perineum Muscle, Open Approach (ICD-10-PCS; 2018-03-03)
DX: O14.94 Unspecified pre-eclampsia, complicating childbirth (principal); O70.1 Second degree perineal laceration during delivery; Z3A.38 38 weeks gestation of pregnancy; Z37.0 Single live birth
CPT/HCPCS: 36415; 59300; 59409; 81003; 82565; 82570; 83615; 84075; 84156; 84450; 84520; 84550; 85027; A9270-GY; J2590; J7120

== ENCOUNTER 2020-07-15 08:08 | Inpatient (IN) | payer BC ==
[~2020-07-15 08:08] MED LIST: Misoprostol 50 MCG (1/2 of 100 MCG) Tab VAG SCH
[2020-07-15] MEDS: Misoprostol 50 MCG (1/2 of 100 MCG) Tab VAG PRN ×2 (09:58→14:05)
[2020-07-15] MEDS ORDERED: Sodium Chloride 0.9% 10 ML Syringe FLUSH PRN ×2 (13:47→18:59)
[2020-07-15] MEDS ORDERED: Carboprost Tromethamine 250 MCG/1 ML Amp IM PRN (13:47)
[2020-07-15] MEDS ORDERED: Ondansetron 4 MG/2 ML SDV IVPUSH PRN (13:47)
[2020-07-15] MEDS ORDERED: Tranexamic Acid 1,000 MG in Sodium Chloride 0.9% 100 ML IV PRN (13:47)
[2020-07-15] MEDS ORDERED: Methylergonovine 0.2 MG/1 ML Amp IM PRN (13:47)
[2020-07-15] MEDS ORDERED: Misoprostol 400 MCG (4 X 100 MCG TAB) RECTAL PRN (13:47)
[2020-07-15] MEDS ORDERED: Acetaminophen 325 MG Tab PO PRN (13:47)
[2020-07-15] MEDS ORDERED: Lidocaine 1% 30 ML SDV INJECT PRN (13:47)
[2020-07-15] MEDS ORDERED: Lactated Ringers 1,000 ML IV ONE (13:47)
--- NOTE | 2020-07-15 13:53 | PCM.LDHP ---
L&D History of Present Illness - General Date of Service: 07/15/20 (Admit H&P) Admit Problem/Dx: Patient Status Order with Admit Dx/Problem 07/15/20 00:48 Admission Status [Patient Status] [ADT] Routine Admission Diagnosis/Problem Admission Diagnosis/Problem 07/15/20 13:51 Shantal is a delightful 25yo @ 39w0d who presents for induction with ripe cervix and hx of rapid delivery who lives remote from hospital and scheduled for out of town trip. they elected to proceed with induction of labor. see notes and episode in [facility] for details of her care. She has been very compliant and has hx of prior vaginal delivery without complications. Dr. Crum delivered her in my absence last time. GBS negative. 07/15/20 18:20 Source of Information: Patient, Family, Old Records, Provider, RN, RN Notes Reviewed, Other ([facility] notes and episode. ) History Limitations: Reports: No Limitations - History of Present Illness Introduction:: 25yo WF @ 39 weeks in for induction due to hx of severe pre-E, ripe cervix at term, lives remote from hospital and hx of precipitous delivery with desire to be induced. shantal and Abdon here for induction after discussion at clinic earlier this week. baby active. no bleeding or fluid leaking. no further questions. no COVID exposure or travel. 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 Crum in my absence. precipitous delivery with laceration repair required. hmb Hematologic History: Reports: Anemia - Past Surgical History HEENT Surgical History: Reports: Oral Surgery, Other (See Below) Other HEENT Surgeries/Procedures: wisdom teeth removal Musculoskeletal Surgical History: Reports: Carpal Tunnel Social & Family History - Family History Family Medical History: Noncontributory - Tobacco Use Smoking Status *Q: Never Smoker Second Hand Smoke Exposure: No - Caffeine Use Caffeine Use: Reports: None - Recreational Drug Use Recreational Drug Use: No - Living Situation & Occupation Living situation: Reports: (they have daughter Radha.) H&P Review of Systems - Review of Systems: Review Of Systems: Comprehensive ROS is negative, except as noted in HPI. L&D Exam - Exam Exam: See Below - Vital Signs Vital Signs: Last Vital Signs Temp 98.1 F 07/15/20 10:05 Pulse 92 07/15/20 10:05 Resp BP 119/64 07/15/20 10:05 Pulse Ox Weight: 250 lb - OB Specific Fundal Height In cm: 40 Contraction Duration (sec): 40-60 Contraction Frequency (min): 3-5 Contraction Intensity: Mild Movement: Active Heart Tones: Present Heart Tones per Min: 140 Heart Rate (FHR) Variability: Moderate (6-25 bmp) Presentation: Right Occiput Anterior (JAMES) Estimated Weight: 8# - Ruiz Score Ruiz Score Cervix Position: Midposition Ruiz Score Consistency: Soft Ruiz Score Effacement: >80% Ruiz Score Dilation: 1-2 cm Ruiz Score 's Station: -2 Ruiz Score Total: 8 - Patient Data Lab Results Last 24 hrs: Laboratory Results - last 24 hr 07/15/20 07/15/20 Range/Units 08:22 08:50 WBC 10.8 H (5.0-10.0) 10^3/uL RBC 4.58 (4.2-5.4) 10^6/uL Hgb 13.7 D (12.0-16.0) g/dL Hct 40.3 (37.0-47.0) % MCV 88.0 D (80-100) fL MCH 29.9 (27.0-34.0) pg MCHC 34.0 (33.0-35.0) g/dL Plt Count 228 (150-450) 10^3/uL COVID-19 (CORNEL) Negative (NEGATIVE) Result Diagrams: 07/15/20 08:50 - Problem List (1) Term SNOMED Code(s): 34620076 ICD Code: Z34.90 - ENCNTR FOR SUPRVSN OF NORMAL , UNSP, UNSP TRIMESTER Status: Acute Current Visit: Yes (2) Blood type B+ SNOMED Code(s): 851180518 ICD Code: Z67.20 - TYPE B BLOOD, RH POSITIVE Status: Acute Current Visit: Yes (3) Rubella immune SNOMED Code(s): 295064607 ICD Code: Z78.9 - OTHER SPECIFIED HEALTH STATUS Status: Acute Current Visit: Yes (4) Group B Streptococcus not isolated SNOMED Code(s): 520516170 ICD Code: ZBW5429 - Status: Acute Current Visit: Yes (5) History of precipitous delivery SNOMED Code(s): 222011159 ICD Code: Z87.59 - PERSONAL HISTORY OF COMP OF PREG, CHLDBRTH AND THE PUERP Status: Acute Current Visit: Yes Problem List Initiated/Reviewed/Updated: Yes Orders Last 24hrs: Active Orders 24 hr Category Date Time Status Admission Status [Patient Status] [ADT] Routine ADT 07/15/20 00:48 Active Communication Order [RC] ASDIRECTED Care 07/15/20 13:47 Ordered Heart Tones [RC] PER UNIT ROUTINE Care 07/15/20 13:47 Ordered Non Stress Test [RC] PER UNIT ROUTINE Care 07/15/20 13:48 Ordered Notify Provider Vital Signs OB [RC] ASDIRECTED Care 07/15/20 13:47 Ordered Notify Provider [RC] PRN Care 07/15/20 13:47 Ordered Pump Management, Intrathecal [RC] ASDIRECTED Care 07/15/20 13:47 Ordered Up ad She [RC] ASDIRECTED Care 07/15/20 13:47 Ordered Vital Signs [RC] PER UNIT ROUTINE Care 07/15/20 13:47 Ordered Regular Diet [DIET] Diet 07/15/20 Lunch Active Acetaminophen [TylenoL] Med 07/15/20 13:47 Ordered 650 mg PO Q4H PRN Carboprost Tromethamine [Hemabate DS] Med 07/15/20 13:47 Ordered 250 mcg IM ASDIRECTED PRN Lactated Ringers @ 125 MLS/HR(1000ml) Med 07/15/20 14:00 Ordered Lactated Ringers [Ringers, Lactated] 1,000 ml IV ASDIRECTED Lactated Ringers [Ringers, Lactated] 1,000 ml Med 07/15/20 13:47 Ordered IV BOLUS Lidocaine 1% [Xylocaine-MPF 1%] Med 07/15/20 13:47 Ordered 30 ml INJECT ASDIRECTED PRN Methylergonovine [Methergine] Med 07/15/20 13:47 Ordered 0.2 mg IM ASDIRECTED PRN Ondansetron [Zofran] Med 07/15/20 13:47 Ordered 4 mg IVPUSH Q4H PRN Oxytocin 30 Units in NS @ 2 MUNITS/MIN(500ml) Med 07/15/20 14:00 Ordered Oxytocin/Normal Saline [Pitocin in NS 30 UNIT/500 ML] 30 unit in 500 ml IV TITRATE Sodium Chloride 0.9% [Saline Flush] Med 07/15/20 13:47 Ordered 10 ml FLUSH ASDIRECTED PRN Tranexamic Acid [Cyklokapron] 1,000 mg Med 07/15/20 13:47 Ordered Sodium Chloride 0.9% [Normal Saline] 100 ml IV ONETIME miSOPROStoL [Cytotec] Med 07/15/20 08:32 Active 50 mcg VAG Q4H PRN miSOPROStoL [Cytotec] Med 07/15/20 13:47 Ordered 800 mcg RECTAL ASDIRECTED PRN Saline Lock Insert [OM.PC] Routine Oth 07/15/20 13:47 Ordered Resuscitation Status Routine Resus Stat 07/15/20 13:47 Ordered Medication Orders Misoprostol (Cytotec) 50 mcg VAG Q4H PRN PRN Reason: cervical ripening Last Admin: 07/15/20 09:58 Dose: 50 mcg Documented by: MAREK Assessment/Plan Comment:: Assessment: 25yo @ 39w0d in for induction Hx of severe pre-E, precipitous delivery, lives remote from hospital, with ripe cervix at term choosing induction B+, RI, GBS negative COVID negative on admit hgb 13.7, PLT WNL on admit NST reactive/reassuring Plan: admit as planned. Cytotec placement, will repeat if indicated. consider AROM when able consider pitocin if indicated. anticipate vaginal delivery AGA baby. plans to room in as much as possible and breast feed. all questions answered. b
[2020-07-15] MEDS ORDERED: Oxytocin/Normal Saline 30 UNIT/500 ML BAG IV SCH (14:00)
[2020-07-15] MEDS ORDERED: Lactated Ringers 1,000 ML IV SCH (14:00)
[2020-07-15] MEDS ORDERED: fentaNYL 100 MCG/2 ML SDV ITHECAL ONE (17:00)
[2020-07-15] MEDS ORDERED: EPINEPHrine 1 MG/1 ML Amp ONE ×2 (17:00→17:13)
[2020-07-15] MEDS ORDERED: fentaNYL 100 MCG/2 ML SDV ONE (17:13)
--- NOTE | 2020-07-15 17:58 | PCM.PRNOTE ---
- Free Text/Narrative Note: Requested to provide analgesia to full term patient in severe pain. Upon entering the room, patient is sitting on edge of bed complaining of severe abdominal/pelvic pain and discomfort. Procedure was discussed with patient including adverse outcomes and expectations. Pt consented to analgesia, SAB/IT. Pt placed into a proper sitting position. Landmarks for SAB/IT were identified and marked. Hands were washed and appropriate PPE was applied. Back was prepped with betadine x3. A sterile, transparent, fenestrated drape was applied. Excess betadine was removed. Using 3 mL of a 1% lidocaine solution, a skin wheel was placed at the L2/L3 interspace. A 24 ga (4 inch) Pencan spinal needle was inserted until positive for CSF. Negative for heme or paresthesias. Injected fentanyl 30 mcg, sufentanil 25 mcg, and 7.5 mg of a 0.75% bupivacaine solution with an epi wash. Pt was placed left lateral position for approximately 20 minutes. There were zero complications or adverse outcomes. Will continue to monitor. Procedure Date & Time: 07/15/20 0316-1141
--- NOTE | 2020-07-15 18:54 | PCM.DEL ---
L & D Note - General Info Date of Service: 07/15/20 (Time of delivery: 1750) Mother's Due Date: 07/22/20 (39w0d) - Delivery Note Labor: Induced by ARM Cervical Ripening Method: Misoprostil Delivery Outcome: Livebirth Delivery Method: Spontaneous Vaginal Delivery-Single Delivery Mode: Spontaneous Presentation: Right Occiput Anterior (JAMES) Nuchal Cord: None Anesthesia Type: Intrathecal Amniotic Fluid Description: Clear Episiotomy Type: None Laceration: None Placenta: Intact, Expressed Cord: 3 Vessels Estimated Blood Loss: 200 (<200cc) Resuscitation Needed: No : Suctioned, Bulb Syringe, Stimulated, Warmed Provider: Randa Connelly Score 1 min: 9 Score 5 min: 9 Delivery Comments (Free Text/Narrative):: Alissa is a 25yo who had Cytotec 50mcg X 2 and progressed on in labor with the aide of hydrotherapy. requested intrathecal, which was placed. AROM with return of clear fluid. progressed rapidly to complete dilation. set up for delivery, and pushed with one cxn. delivered a viable 8lb 5oz male infant over an intact perineum. delivered to mom's chest for skin to skin contact and nursing. clamped X 2, cord cut 3V, sample obtained placenta delivered intact with trailing membranes EBL <200cc fundus firm. mom and baby doing well - General Info Date of Service: 07/15/20 (time of delivery: 1750) - Patient Data Vitals - Most Recent: Last Vital Signs Temp 98.2 F 07/15/20 15:00 Pulse 74 07/15/20 15:00 Resp BP 123/66 07/15/20 15:00 Pulse Ox Weight - Most Recent: 250 lb Lab Results Last 24 Hours: Laboratory Results - last 24 hr 07/15/20 07/15/20 Range/Units 08:22 08:50 WBC 10.8 H (5.0-10.0) 10^3/uL RBC 4.58 (4.2-5.4) 10^6/uL Hgb 13.7 D (12.0-16.0) g/dL Hct 40.3 (37.0-47.0) % MCV 88.0 D (80-100) fL MCH 29.9 (27.0-34.0) pg MCHC 34.0 (33.0-35.0) g/dL Plt Count 228 (150-450) 10^3/uL COVID-19 (CORNEL) Negative (NEGATIVE) Med Orders - Current: Current Medications Acetaminophen (Tylenol) 650 mg PO Q4H PRN PRN Reason: Pain (Mild 1-3) and fever Carboprost Tromethamine (Hemabate Ds) 250 mcg IM ASDIRECTED PRN PRN Reason: HEMORRHAGE Lactated Ringer's (Ringers, Lactated) 1,000 mls @ 125 mls/hr IV ASDIRECTED MEHDI Last Admin: 07/15/20 17:20 Dose: 125 mls/hr Documented by: Tranexamic Acid 1,000 mg/ (Sodium Chloride) 110 mls @ 660 mls/hr IV ONETIME PRN PRN Reason: Bleeding Oxytocin/Sodium Chloride (Pitocin In Ns 30 Unit/500 Ml) 30 unit in 500 mls @ 2 mls/hr IV TITRATE MEHDI; Protocol Lidocaine HCl (Xylocaine-Mpf 1%) 30 ml INJECT ASDIRECTED PRN PRN Reason: Perineal Repair Methylergonovine Maleate (Methergine) 0.2 mg IM ASDIRECTED PRN PRN Reason: Hemorrhage Misoprostol (Cytotec) 50 mcg VAG Q4H PRN PRN Reason: cervical ripening Last Admin: 07/15/20 14:05 Dose: 50 mcg Documented by: Misoprostol (Cytotec) 800 mcg RECTAL ASDIRECTED PRN PRN Reason: Hemorrhage Ondansetron HCl (Zofran) 4 mg IVPUSH Q4H PRN PRN Reason: Nausea/Vomiting Last Admin: 07/15/20 17:01 Dose: 4 mg Documented by: Sodium Chloride (Saline Flush) 10 ml FLUSH ASDIRECTED PRN PRN Reason: Keep Vein Open Discontinued Medications Epinephrine HCl (Adrenalin) Confirm Administered Dose 1 mg .ROUTE .STK-MED ONE Stop: 07/15/20 17:14 Last Admin: 07/15/20 17:28 Dose: Not Given Documented by: Fentanyl (Sublimaze) Confirm Administered Dose 100 mcg .ROUTE .STK-MED ONE Stop: 07/15/20 17:14 Last Admin: 07/15/20 17:28 Dose: Not Given Documented by: Lactated Ringer's (Ringers, Lactated) 1,000 mls @ 999 mls/hr IV BOLUS ONE Stop: 07/15/20 14:47 Last Admin: 07/15/20 16:57 Dose: 999 mls/hr Documented by: Misoprostol (Cytotec) 50 mcg VAG Q4H MEHDI Last Admin: 07/15/20 08:53 Dose: Not Given Documented by: Sufentanil Citrate (Sufenta) Confirm Administered Dose 50 mcg .ROUTE .STK-MED ONE Stop: 07/15/20 17:14 Last Admin: 07/15/20 17:28 Dose: Not Given Documented by: - Problem List & Annotations (1) Term SNOMED Code(s): 06095316 Code(s): Z34.90 - ENCNTR FOR SUPRVSN OF NORMAL , UNSP, UNSP TRIMESTER Status: Acute Current Visit: Yes (2) Blood type B+ SNOMED Code(s): 618418060 Code(s): Z67.20 - TYPE B BLOOD, RH POSITIVE Status: Acute Current Visit: Yes (3) Rubella immune SNOMED Code(s): 817127082 Code(s): Z78.9 - OTHER SPECIFIED HEALTH STATUS Status: Acute Current Visit: Yes (4) Group B Streptococcus not isolated SNOMED Code(s): 289813741 Code(s): EZN5470 - Status: Acute Current Visit: Yes (5) History of precipitous delivery SNOMED Code(s): 241239206 Code(s): Z87.59 - PERSONAL HISTORY OF COMP OF PREG, CHLDBRTH AND THE PUERP Status: Acute Current Visit: Yes - Problem List Review Problem List Initiated/Reviewed/Updated: Yes - My Orders Last 24 Hours: My Active Orders 07/15/20 00:48 Admission Status [Patient Status] [ADT] Routine 07/15/20 08:32 miSOPROStoL [Cytotec] 50 mcg VAG Q4H PRN 07/15/20 Lunch Regular Diet [DIET] 07/15/20 13:47 Communication Order [RC] ASDIRECTED Notify Provider Vital Signs OB [RC] ASDIRECTED Notify Provider [RC] PRN Pump Management, Intrathecal [RC] ASDIRECTED Up ad She [RC] ASDIRECTED Vital Signs [RC] PER UNIT ROUTINE Acetaminophen [TylenoL] 650 mg PO Q4H PRN Carboprost Tromethamine [Hemabate DS] 250 mcg IM ASDIRECTED PRN Lidocaine 1% [Xylocaine-MPF 1%] 30 ml INJECT ASDIRECTED PRN Methylergonovine [Methergine] 0.2 mg IM ASDIRECTED PRN Ondansetron [Zofran] 4 mg IVPUSH Q4H PRN Sodium Chloride 0.9% [Saline Flush] 10 ml FLUSH ASDIRECTED PRN Tranexamic Acid [Cyklokapron] 1,000 mg Sodium Chloride 0.9% [Normal Saline] 100 ml IV ONETIME miSOPROStoL [Cytotec] 800 mcg RECTAL ASDIRECTED PRN Saline Lock Insert [OM.PC] Routine Resuscitation Status Routine 07/15/20 13:48 Non Stress Test [RC] PER UNIT ROUTINE 07/15/20 14:00 Lactated Ringers [Ringers, Lactated] 1,000 ml IV ASDIRECTED Oxytocin/Normal Saline [Pitocin in NS 30 UNIT/500 ML] 30 unit in 500 ml IV TITRATE - Plan Plan:: Assessment: 25yo WF @ 39w0d in for induction Hx of severe pre-E, precipitous delivery, lives remote from hospital, with ripe cervix at term choosing induction B+, RI, GBS negative COVID negative on admit hgb 13.7, PLT WNL on admit NST reactive/reassuring Plan: admit as planned. Cytotec placement, will repeat if indicated. consider AROM when able consider pitocin if indicated. anticipate vaginal delivery AGA baby. plans to room in as much as possible and breast feed. all questions answered. hmb Delivery: 07-15-2020 @ 1750 vaginal delivery one cxn over intact perineum without complication viable male APGARs 9 & 9 8lb 5oz 3765g breast/nursing skin to skin. EBL <200cc hmb
[2020-07-15] MEDS ORDERED: Benzocaine/Menthol 20%-0.5% Spray 56 GM Canister TOP PRN (18:59)
[2020-07-15] MEDS ORDERED: Zolpidem 5 MG Tab PO PRN (18:59)
[2020-07-15] MEDS ORDERED: Simethicone 80 MG Tab.Chew PO PRN (18:59)
[2020-07-16] MEDS: Docusate Sodium 100 MG Cap PO PRN (08:09)
[2020-07-16] MEDS: Prenatal Multivitamin with Calcium/Folic Acid/Iron Tab PO SCH (08:09)
[2020-07-16] MEDS: Ibuprofen 800 MG Tab PO PRN ×2 (08:09→16:53)
--- NOTE | 2020-07-16 11:56 | PCM.SN.2 ---
- Free Text/Narrative Note: DOS: 07-16-2020 Alissa doing well PPD #1 s/p vaginal delivery flow normal mild cramps nursing. eating, ambulating and voiding well. no concerns. Afebrile, VSS fundus firm, u-3 trace edema continue current cares likely home tomorrow all questions answered for this delightful couple. b
[2020-07-17] MEDS: Prenatal Multivitamin with Calcium/Folic Acid/Iron Tab PO SCH (08:51)
[2020-07-17] MEDS: Docusate Sodium 100 MG Cap PO PRN (08:51)
--- NOTE | 2020-07-17 12:14 | PCM.DCSUM1 ---
Discharge Summary - Hospital Course Free Text/Narrative:: Alissa is a delightful 25yo WF G2 now P2 who presented @ 39 weeks for inductin of labor due to ripe cervix at term with hx precipitous delivery, living remote from hospital. she received 2 doses of cytotec and AROM and intrathecal, and subsequently progressed rapidly to complete and delivered precipitously a viable 8lb 5oz male with APGARs 9 & 9 over intact perineum. . has done well and ready for discharge on PPD #2. HGB PLT WNL on admit and COVID negative. not repeated. hmb HPI Initial Comments: as above. see admit H&P and EPIC notes Brief History: as above and see admit notes/delivery notes. Diagnosis: Stroke: No - Discharge Data Discharge Date: 07/17/20 (DISCHARGE DATE) Discharge Disposition: Home, Self-Care 01 Condition: Good - Referral to Home Health Primary Care Physician: Randa Connelly MD - Discharge Diagnosis/Problem(s) (1) Term SNOMED Code(s): 95235536 ICD Code: Z34.90 - ENCNTR FOR SUPRVSN OF NORMAL , UNSP, UNSP TRIMESTER Status: Acute Current Visit: Yes (2) Blood type B+ SNOMED Code(s): 420554177 ICD Code: Z67.20 - TYPE B BLOOD, RH POSITIVE Status: Acute Current Visit: Yes (3) Rubella immune SNOMED Code(s): 861769949 ICD Code: Z78.9 - OTHER SPECIFIED HEALTH STATUS Status: Acute Current Visit: Yes (4) Group B Streptococcus not isolated SNOMED Code(s): 109404662 ICD Code: [id number] - Status: Acute Current Visit: Yes (5) History of precipitous delivery SNOMED Code(s): 367360792 ICD Code: Z87.59 - PERSONAL HISTORY OF COMP OF PREG, CHLDBRTH AND THE PUERP Status: Acute Current Visit: Yes - Patient Summary/Data Consults: Consultations 07/15/20 18:59 Consult to Home Economics Teacher [CONS] Routine Hospital Course: hospital course is uncomplicated and uneventful. voiding, ambulating and eating well. VSS and afebrile fundus firm flow WNL nursing and bonding well, rooming in as much as possible. ready for discharge on PPD #2 will follow up for 6 week PP check and sooner prn. routine discharge isntructiosn and orders. hmb - Patient Instructions Diet: Usual Diet as Tolerated Activity: As Tolerated Showering/Bathing: May Shower Notify Provider of: Fever, Increased Pain, Swelling and Redness, Drainage - Discharge Plan *PRESCRIPTION DRUG MONITORING PROGRAM REVIEWED*: Not Applicable *COPY OF PRESCRIPTION DRUG MONITORING REPORT IN PATIENT EUN: Not Applicable Home Medications: Home Meds Pnv,Calcium 72/Iron/Folic Acid [ Plus Tablet] 1 dose PO DAILY 03/02/18 [History] Ferrous Sulfate 325 mg PO DAILY 07/07/20 [History] - Discharge Summary/Plan Comment DC Time >30 min.: No Discharge Summary/Plan Comment: 6 week check - Patient Data Vitals - Most Recent: Last Vital Signs Temp 97.9 F 07/17/20 08:00 Pulse 76 07/17/20 08:00 Resp 16 07/17/20 08:00 BP 118/80 07/17/20 08:00 Pulse Ox 99 07/17/20 08:00 Weight - Most Recent: 250 lb Med Orders - Current: Current Medications Acetaminophen (Tylenol) 650 mg PO Q4H PRN PRN Reason: Pain (Mild 1-3) and fever Benzocaine/Menthol (Dermoplast Pain Relief [place]) 0 gm TOP Q4H PRN PRN Reason: Perineal comfort measures Carboprost Tromethamine (Hemabate Ds) 250 mcg IM ASDIRECTED PRN PRN Reason: HEMORRHAGE Docusate Sodium (Colace) 100 mg PO BID PRN PRN Reason: Constipation Last Admin: 07/17/20 08:51 Dose: 100 mg Documented by: Lactated Ringer's (Ringers, Lactated) 1,000 mls @ 125 mls/hr IV ASDIRECTED MEHDI Last Admin: 07/15/20 17:20 Dose: 125 mls/hr Documented by: Tranexamic Acid 1,000 mg/ (Sodium Chloride) 110 mls @ 660 mls/hr IV ONETIME PRN PRN Reason: Bleeding Oxytocin/Sodium Chloride (Pitocin In Ns 30 Unit/500 Ml) 30 unit in 500 mls @ 2 mls/hr IV TITRATE MEHDI; Protocol Last Titration: 07/15/20 20:20 Dose: Infused Documented by: Ibuprofen (Motrin) 800 mg PO Q8H PRN PRN Reason: Mild Pain or Fever Last Admin: 07/16/20 16:53 Dose: 800 mg Documented by: Lidocaine HCl (Xylocaine-Mpf 1%) 30 ml INJECT ASDIRECTED PRN PRN Reason: Perineal Repair Methylergonovine Maleate (Methergine) 0.2 mg IM ASDIRECTED PRN PRN Reason: Hemorrhage Misoprostol (Cytotec) 50 mcg VAG Q4H PRN PRN Reason: cervical ripening Last Admin: 07/15/20 14:05 Dose: 50 mcg Documented by: Misoprostol (Cytotec) 800 mcg RECTAL ASDIRECTED PRN PRN Reason: Hemorrhage Ondansetron HCl (Zofran) 4 mg IVPUSH Q4H PRN PRN Reason: Nausea/Vomiting Last Admin: 07/15/20 17:01 Dose: 4 mg Documented by: Prenat Multivit/[employer]/Iron/Folic Ac ( Plus Iron) 1 each PO DAILY MEHDI Last Admin: 07/17/20 08:51 Dose: 1 each Documented by: Simethicone (Simethicone) 80 mg PO Q4H PRN PRN Reason: Gas Sodium Chloride (Saline Flush) 10 ml FLUSH ASDIRECTED PRN PRN Reason: Keep Vein Open Sodium Chloride (Saline Flush) 10 ml FLUSH ASDIRECTED PRN PRN Reason: Keep Vein Open Witch Sola (Medi-Pads) 1 each TOP Q4HR PRN PRN Reason: Perineal Comfort Measure Zolpidem Tartrate (Ambien) 5 mg PO BEDTIME PRN PRN Reason: Insomnia Discontinued Medications Epinephrine HCl (Adrenalin) Confirm Administered Dose 1 mg .ROUTE .STK-MED ONE Stop: 07/15/20 17:14 Last Admin: 07/15/20 17:28 Dose: Not Given Documented by: Epinephrine HCl (Adrenalin) 0.1 mg .XX .STK-MED ONE Stop: 07/15/20 17:01 Fentanyl (Sublimaze) Confirm Administered Dose 100 mcg .ROUTE .STK-MED ONE Stop: 07/15/20 17:14 Last Admin: 07/15/20 17:28 Dose: Not Given Documented by: Fentanyl (Sublimaze) 30 mcg ITHECAL .STK-MED ONE Stop: 07/15/20 17:01 Lactated Ringer's (Ringers, Lactated) 1,000 mls @ 999 mls/hr IV BOLUS ONE Stop: 07/15/20 14:47 Last Admin: 07/15/20 16:57 Dose: 999 mls/hr Documented by: Misoprostol (Cytotec) 50 mcg VAG Q4H MEHDI Last Admin: 07/15/20 08:53 Dose: Not Given Documented by: Sufentanil Citrate (Sufenta) Confirm Administered Dose 50 mcg .ROUTE .STK-MED ONE Stop: 07/15/20 17:14 Last Admin: 07/15/20 17:28 Dose: Not Given Documented by: Sufentanil Citrate (Sufenta) 25 mcg ITHECAL .STK-MED ONE Stop: 07/15/20 17:01
== END 2020-07-17 12:45 | disposition home or self-care (01) | DRG 560 ==
LOC: DL.OB 08:08 → OBSVTOIN 17:50 → DL.OB 17:50
PROVIDERS: ADMIT Family Medicine; ATTEND Family Medicine
PROC: 10E0XZZ Delivery of Products of Conception, External Approach (ICD-10-PCS; principal; 2020-07-15)
PROC: 10907ZC Drainage of Amniotic Fluid, Therapeutic from Products of Conception, Via Natural or Artificial Opening (ICD-10-PCS; 2020-07-15)
PROC: 3E0P7VZ Introduction of Hormone into Female Reproductive, Via Natural or Artificial Opening (ICD-10-PCS; 2020-07-15)
PROC: 3E0R3BZ Introduction of Anesthetic Agent into Spinal Canal, Percutaneous Approach (ICD-10-PCS; 2020-07-15)
DX: O62.3 Precipitate labor (principal); Z3A.39 39 weeks gestation of pregnancy; Z37.0 Single live birth; Z67.20 Type B blood, Rh positive; Z20.828 Contact with and (suspected) exposure to other viral communicable diseases
CPT/HCPCS: 01967; 36415; 59409; 85027; A9270-GY; J0171; J2405; J2590; J3010; J7120; U0002